=== PATIENT | male | born 1990 | race Asian ===

== ENCOUNTER 2024-07-02 13:53 | Emergency (ER) | payer MEDICAID, SELFPAY ==
[2024-07-02 13:55] VITALS: BMI 30.7
--- NOTE | 2024-07-02 14:13 | EKG_ITS ---
[facility] Test Date: 2024-07-02 Pat Name: CHUY TAVAREZ Department: Room: - Gender: Male [employer] Installation Technician: : 1990 Requested By: Cayetano Sorenson Order Number: [id number] Reading MD: Cayetano Sorenson Measurements Intervals [place] Rate: 96 P: 55 VT: 147 QRS: 43 QRSD: 87 T: 0 QT: 353 QTc: 448 Interpretive Statements SINUS RHYTHM MODERATE VOLTAGE CRITERIA FOR LVH, CONSIDER NORMAL VARIANT [MEETS CRITERIA IN ONE OF: R(aVL), S(V1), R(V5), R(V5/V6)+S(V1)] NONSPECIFIC T-WAVE ABNORMALITY Compared to ECG 01/05/2021 21:13:22 T-wave abnormality now present /store/S0/[id number].pdf
--- NOTE | 2024-07-02 14:13 | XR_ITS ---
EXAMINATION: XR chest 2V ORDERING PROVIDER: ADIEL Gonzalez HISTORY: Headache and hematuria. TECHNIQUE: PA and Lateral radiographs of the chest. COMPARISON: 01/05/2021, chest radiographs. FINDINGS: Lungs: Clear. Pleura: No pneumothorax or pleural effusion. Cardiomediastinal Silhouette: Normal. Soft Tissues/Bones: Normal. IMPRESSION: No acute pulmonary findings.
--- NOTE | 2024-07-02 14:13 | PD.EDRME ---
Rapid Medical Screening Exam RME Arrival date/time: 07/02/24 13:53 34-year-old male with no known medical history presents to the emergency room with a chief complaint of 8 out of 10 sternal chest pain, dizziness, lightheadedness x 3 days. Patient also states she has had an episode of hematuria. I have greeted and performed a focused initial assessment of this patient. A comprehensive ED assessment and evaluation of the patient, analysis of all test results, and completion of the medical decision making process will be conducted by additional ED providers. Chief Complaint: Chest Pain Time Seen by Provider: 07/02/24 14:03 Vital signs reviewed by provider: Yes
[2024-07-02 14:14] VITALS: BP 185/103; PULSE 114; RESP 18; TEMP 36.9; O2SAT 99; BMI 30.7
[2024-07-02 14:30] VITALS: BP 185/103; PULSE 114
[2024-07-02] MEDS: cloNIDine HCL 0.1 MG TABLET PO (14:30)
[2024-07-02 14:35] LABS: Basophils # (Auto) 0.1 Thou/mm3 (0.0-0.2); Basophils % (Auto) 1 % (0-2.5); Eosinophils # (Auto) 0.2 Thou/mm3 (0.0-0.5); Eosinophils % (Auto) 3 % (0-10); Hematocrit 43.8 % (41.0-53.0); Hemoglobin 13.7 g/dL (13.5-16.0); Immature Granulocytes % (Auto) 0 % (0-0); Immature Granulocytes Auto 0.02 Thou/mm3 (0.00-0.00); Lymphocytes # (Auto) 1.2 Thou/mm3 (1.0-4.8); Lymphocytes % (Auto) 15 % (10-50); Mean Corpuscular HGB Conc 31.3 g/dl (31.0-37.0); Mean Corpuscular Volume 67 fL (80-100); Monocytes # (Auto) 0.5 Thou/mm3 (0.0-0.8); Monocytes % (Auto) 7 % (0-12); Neutrophils # (Auto) 5.9 Thou/mm3 (1.8-7.7); Neutrophils % (Auto) 74 % (37-80); Nucleated Red Blood Cell % 0 /100 WBC (0); Platelet Count 298 Thou/mm3 (140-440); RDW Standard Deviation 36.1 fL (35.1-43.9); Red Blood Count 6.53 Miln/mm3 (4.50-5.90); White Blood Count 7.9 Thou/mm3 (3.8-10.6)
[2024-07-02 14:51] LABS: INR 1.1 (0.9-1.3); Partial Thromboplastin Time 29.5 Seconds (22.0-36.0); Prothrombin Time 11.5 Seconds (9.0-12.2)
[2024-07-02 14:53] LABS: B-Type Natriuretic Peptide < 20 pg/mL (0-100)
[2024-07-02 14:54] LABS: Path Review Blood Smear Sent to Pathologist
[2024-07-02 14:55] LABS: Alanine Aminotransferase 22 U/L (10-49); Albumin, Serum 4.8 gm/dL (3.5-5.0); Albumin/Globulin Ratio 1.7 (1.2-2.2); Alkaline Phosphatase 70 U/L (46-116); Anion Gap 8 (7-16); Aspartate Amino Transferase 22 U/L (0-34); BUN/Creatinine Ratio 5 Ratio (12-20); Bilirubin,Total 0.7 mg/dL (0.3-1.2); Blood Urea Nitrogen 5 mg/dL (9-23); Calcium 9.6 mg/dL (8.3-10.6); Calcium (Corrected) 9.6 mg/dL (8.5-10.1); Carbon Dioxide 29.1 mMol/L (20.0-31.0); Chloride 103 mMol/L (98-107); Estimated Creatinine Clearance 106.1 mL/min (>60); Globulin 2.9 gm/dL (2.3-3.5); Glucose 129 mg/dL (74-106); Magnesium 2.2 mg/dL (1.6-2.6); Osmolality,Calculated 278 (275-295); Potassium 3.2 mMol/L (3.4-5.1); Sodium 140 mMol/L (136-145); Total Protein 7.7 gm/dL (5.7-8.2); Troponin I < 0.020 ng/mL (0.0-0.045); eGFR > 60 See Note
[2024-07-02 16:32] LABS: Collection Type, Urine Clean Catch
[2024-07-02 16:37] LABS: Bilirubin,Urine Negative (Negative); Blood,Urine Negative (Negative); Clarity,Urine Clear (Clear/Hazy); Color,Urine Lt-Yellow (Lt Yel-Yel); Glucose, Urine Negative (Negative); Ketones,Urine Negative (Negative); Leukocyte Esterase,Urine Negative (Negative); Nitrite,Urine Negative (Negative); Protein,Urine Negative (Neg - Trace); RBC,Urine 1 /hpf (0-3); Specific Gravity,Urine 1.014 (1.001-1.035); Squamous Epithelial Cell,Urine < 1 /hpf (0-5); Urobilinogen,Urine Negative mg/dL (0.0-1.0); WBC,Urine 1 /hpf (0-5)
[2024-07-02 17:09] LABS: Amphetamine/Methamp Scrn,U Negative (Negative); Barbiturate Screen,Urine Negative (Negative); Benzodiazepines Screen,Urine Negative (Negative); Benzoylecgonine Screen, Ur Positive (Negative); Fentanyl Screen,Urine Negative (Negative); Opiate Screen,Urine Negative (Negative); THC Screen,Urine Positive (Negative)
[2024-07-02 17:47] VITALS: BP 145/92; PULSE 75; RESP 18; TEMP 36.6; O2SAT 98
--- NOTE | 2024-07-02 17:48 | EDNOTE_ITS ---
ED General RME/HPI General Chief complaint: Chest Pain Stated complaint: CP/MATTSON/BLOOD IN STOOL Time Seen by Provider: 07/02/24 14:03 Arrival date/time: 07/02/24 13:53 CC: Chest pain and headache bloody urination. HPI ongoing for the past 48 hours patient states he smokes marijuana but takes no street drugs does not drink alcohol for the past 2 years is awake alert oriented somewhat anxious. Currently only has a headache. RME / HPI RME / HPI narrative: 07/02/24 13:53 34-year-old male with no known medical history presents to the emergency room with a chief complaint of 8 out of 10 sternal chest pain, dizziness, lightheadedness x 3 days. Patient also states she has had an episode of hematuria. I have greeted and performed a focused initial assessment of this patient. A comprehensive ED assessment and evaluation of the patient, analysis of all test results, and completion of the medical decision making process will be conducted by additional ED providers. Related Data Home Medications ?Medication ?Instructions ?Recorded ?Confirmed INHALER ##0 12/20/15 Previous Rx's ?Medication ?Instructions ?Recorded Cyclobenzaprine * (FLEXERIL *) 10 mg PO TID #30 tabs 0 12/20/15 Hydrocodone/Acetaminophen * (NORCO 1 tab PO Q4H PRN pa in #20 tabs 12/21/15 5/325 *) Hydrocodone/Acetaminophen * (NORCO 1 tab PO Q6H PRN PA IN #12 tabs 10/04/16 5/325 *) ibuprofen 800 mg tablet 800 mg PO TID PRN pain #30 t abs 12/27/18 cephalexin 500 mg capsule (Keflex) 500 mg PO QID #28 c aps 12/30/18 cyclobenzaprine 15 mg 15 mg PO QDAY PRN muscle spa sm #3 12/30/18 capsule,extended release 24 hr caps doxycycline hyclate 100 mg capsule 100 mg PO BID #14 c aps 12/30/18 tramadol 37.5 mg-acetaminophen 325 1 tab PO TID PRN pa in #15 tabs 08/23/20 mg tablet (Ultracet) albuterol sulfate 90 mcg/actuation 2 puff inhalation Q ID PRN 01/06/21 aerosol inhaler shortness of breath or wheez ing #8.5 grams azithromycin 250 mg tablet See Rx Instructions PO .COM PLEX #6 01/06/21 tabs hydrocodone 5 mg-acetaminophen 325 1 tab PO BID PRN pa in #10 tabs 10/05/21 mg tablet ibuprofen 800 mg tablet 800 mg PO TID PRN pain #30 t abs 10/05/21 naproxen 500 mg tablet (Naprosyn) 500 mg PO BID PRN pa in #30 tabs 12/12/22 acetaminophen 500 mg tablet 1,000 mg (2 x 500 mg) PO Q 6H PRN 06/18/23 (Tylenol Extra Strength) pain #30 tabs methylprednisolone 4 mg tablets in 4 mg PO QAM #21 tab s 06/18/23 a dose pack (Medrol (Ambrocio)) meloxicam 7.5 mg tablet 7.5 mg PO QDAY #20 tabs 06/23 08/15 Allergies Allergy/AdvReac Type Severity Reaction Status Date / Time Egg Derived Allergy Severe Hives Verified 07/02/24 13:59 peanut Allergy Severe ANAPHYLAXIS Verified 07/02/24 13:59 walnut Allergy Severe ANAPHYLAXIS Verified 07/02/24 13:59 DAIRY PRODUCTS Allergy Severe Hives Uncoded 07/02/24 13:59 SEA FOOD Allergy Severe RASH Uncoded 07/02/24 13:59 Review of Systems Review of Systems Narrative Review of Systems: GEN: No fever, no chills, no weight loss EYES: No discharge, no visual changes, no pain HEENT: No ear pain, no congestion, no sore throat PULM: No shortness of breath, no cough, no congestion CV: No chest pain, no dyspnea on exertion, no palpitations GI: No nausea, no vomiting, no diarrhea, no pain, no constipation : No frequency, no urgency, no dysuria MUSC/SKEL: No joint pain, no back pain SKIN: No rash PSYCH: No hallucinations, no depression HEME/LYMPH: No easy bleeding or bruising tendencies NEURO: No weakness, + headache Past Medical History Past Medical History CARDIAC: Negative Cardiac Disorders or Congestive Heart Failure RESPIRATORY: Positive Asthma; Negative Chronic Obstructive Pulmonary Disease (COPD) GENITOURINARY: Negative Renal Disease MUSCULOSKELETAL: Positive Gout ENDOCRINE: Negative Diabetes Mellitus Type 1 or Diabetes Mellitus Type 2 HEMATOLOGIC: Negative Sickle Cell Disease Social History SMOKING STATUS: Current every day smoker SUBSTANCE USE: does not use ED Exam Narrative Physical exam: [General: Mildly anxious but not in any acute distress Head normocephalic HEENT: Eyes pupils are PERRLA EOMs are intact mouth pink moist membranes uvula is midline swallow symmetrical phonation is normal. Within acceptable limits Neck is supple nontender Chest equal chest rise nontender to palpation Respiratory: Clear to auscultation no wheezes crackles or rubs CV: Rate rhythm is regular no murmurs rubs or clicks Abdomen is flat, soft nontender no masses positive bowel sounds all 4 quadrants Back: No CVA tenderness no spinous process tenderness from cervical spine thoracic and lumbar spine Skin: Multiple open areas to his anterior chest and forearms suggestive of skin picking. Otherwise skin is intact no petechiae rash induration ulceration or crepitus Extremities: Moving all extremity against resistance cap refill less than 2 seconds neurosensory intact Neuro: Awake alert oriented x3 Glascow coma 15 no focal deficits] Course Quality Measures none Orders Category Date Time Status EKG (ED ONLY) *Do not use* NOW Care 07/02/24 14:13 Completed EKG (ED Only) Stat Exams 07/02/24 14:13 Draft XR chest 2V Stat Exams 07/02/24 14:13 Completed B-Type Natriuretic Peptide Stat Lab 07/02/24 14:28 Completed CBC Stat Lab 07/02/24 14:28 Completed Comprehensive Metabolic Panel Stat Lab 07/02/24 14:28 Completed Drug Screen,Urine Stat Lab 07/02/24 16:22 Completed Magnesium Stat Lab 07/02/24 14:28 Completed Partial Thromboplastin Time Stat Lab 07/02/24 14:28 Completed Path Review Blood Smear Stat Lab 07/02/24 14:28 Completed Prothrombin Time with INR Stat Lab 07/02/24 14:28 Completed Troponin I Stat Lab 07/02/24 14:28 Completed Urinalysis Stat Lab 07/02/24 16:22 Completed Acetaminophen Tab [Tylenol Tab] Med 07/02/24 17:57 Discontinued 650 mg PO X1 ONE cloNIDine HCL [Catapres] Med 07/02/24 14:14 Discontinued 0.1 mg PO X1 ONE Vital Signs Vital signs: Vital Signs Temperature 98.5 F 07/02/24 14:14 Pulse Rate 114 H 07/02/24 14:14 Respiratory Rate 18 07/02/24 14:14 Blood Pressure 185/103 H 07/02/24 14:14 Pulse Oximetry (%) 99 07/02/24 14:14 Oxygen Delivery Method Room Air 07/02/24 14:[address] [facility] Patient data External records reviewed:: [facility] previous records Clinical information provided by:: patient Social determinants that could affect healthcare access:: none Patient has the following chronic illnesses:: None How is presenting disease/condition affected by chronic disease/condition?: u neffected by Evaluation data The following diagnostics were reviewed and interpreted by me:: lab results, radiology exam(s) and EKG tracing(s) Lab and/or radiology exams considered but not ordered:: EKG performed at 1419 shows ventricular rate of 9 6 SD interval 147 QRS of 8 7 QTc of 407 is normal sinus rhythm. Nonspecific T wave abnormalities CBC shows no acute leukocytosis anemia thrombocytopenia CMP shows no acute electrolyte imbalances other than potassium of 3.2. Renal impairment transaminitis or T. bili elevation other than Coags within acceptable limits Troponin is negative BNP is negative Urine is negative UDS is positive for cocaine and marijuana Interpretation Summary: No acute finding requires emergent or immediate intervention we will give the patient Tylenol for headache and discharged home. Medications Medications considered but not ordered:: None Medication administrations:: Medication Administration History Discontinued Medications Acetaminophen (Acetaminophen 325 Mg Tablet) 650 mg PO X1 ONE Stop: 07/02/24 17:58 Last Admin: 07/02/24 18:11 Dose: 650 mg Documented By: TM Clonidine (Clonidine Hcl 0.1 Mg Tablet) 0.1 mg PO X1 ONE Stop: 07/02/24 14:15 Last Admin: 07/02/24 14:30 Dose: 0.1 mg Documented By: ANA M None Consultations Consultation(s) initiated? (list below): No Diagnosis Differential Diagnosis ED Complaint MDM: ACS NC pneumonia Most likely diagnosis given after review of the tests above:: Chest pain headache cocaine abuse Admission Indicated Admission indicated?: not indicated Explain why admission is indicated or not indicated:: Stable for discharge Admission Request Was there a request for admission?: No Disposition Plan Disposition Plan: Discharge Discharge Attestation Discharge Attestation: The patient and all family members were given an opportunity to ask questions and understood the discharge instructions. Discharge instructions specifically effects, indications for sooner follow up or return to the emergency department, and the expected course of current diagnosis. Patient condition: Stable Medical Decision Making Differential Diagnosis Differential Diagnosis: ACS NC pneumonia Lab Data 07/02/24 14:28 07/02/24 14:28 Labs: Lab Results 07/02/24 07/02/24 Range/Units 14:28 16:22 WBC 7.9 (3.8-10.6) Thou/mm3 RBC 6.53 H (4.50-5.90) Miln/mm3 Hgb 13.7 (13.5-16.0) g/dL Hct 43.8 (41.0-53.0) % MCV 67 L (80-100) fL MCH 21.0 L (25.0-35.0) pg MCHC 31.3 (31.0-37.0) g/dl RDW Std Deviation 36.1 (35.1-43.9) fL Plt Count 298 (140-440) Thou/mm3 Neut % (Auto) 74 (37-80) % Lymph % (Auto) 15 (10-50) % Martin % (Auto) 7 (0-12) % Eos % (Auto) 3 (0-10) % Baso % (Auto) 1 (0-2.5) % Neut # (Auto) 5.9 (1.8-7.7) Thou/mm3 Lymph # (Auto) 1.2 (1.0-4.8) Thou/mm3 Martin # (Auto) 0.5 (0.0-0.8) Thou/mm3 Eos # (Auto) 0.2 (0.0-0.5) Thou/mm3 Baso # (Auto) 0.1 (0.0-0.2) Thou/mm3 Immature Gran # (Auto) 0.02 H (0.00-0.00) Thou/mm3 Absolute Nucleated RBC 0.00 (0.00-0.00) Thou/mm3 Immature Gran % 0 (0-0) % Nucleated RBC % 0 (0) /100 WBC Smear Path Review Sent to Pathologist PT 11.5 (9.0-12.2) Seconds INR 1.1 (0.9-1.3) APTT 29.5 (22.0-36.0) Seconds Sodium 140 (136-145) mMol/L Potassium 3.2 L (3.4-5.1) mMol/L Chloride 103 (98-107) mMol/L Carbon Dioxide 29.1 (20.0-31.0) mMol/L Anion Gap 8 (7-16) BUN 5 L (9-23) mg/dL Creatinine 1.0 (0.6-1.3) mg/dL Estim Creat Clear Calc 106.1 (>60) mL/min eGFR > 60 (60 - ) See Note BUN/Creatinine Ratio 5 L (12-20) Ratio Glucose 129 H (74-106) mg/dL Calculated Osmolality 278 (275-295) Calcium 9.6 (8.3-10.6) mg/dL Corrected Calcium 9.6 (8.5-10.1) mg/dL Magnesium 2.2 (1.6-2.6) mg/dL Total Bilirubin 0.7 (0.3-1.2) mg/dL AST 22 (0-34) U/L ALT 22 (10-49) U/L Alkaline Phosphatase 70 (46-116) U/L Troponin I < 0.020 (0.0-0.045) ng/mL B-Natriuretic Peptide < 20 (0-100) pg/mL Total Protein 7.7 (5.7-8.2) gm/dL Albumin 4.8 (3.5-5.0) gm/dL Globulin 2.9 (2.3-3.5) gm/dL Albumin/Globulin Ratio 1.7 (1.2-2.2) Ur Collection Type Clean Catch Urine Color Lt-Yellow (Lt Yel-Yel) Urine Clarity Clear (Clear/Hazy) Urine pH 7.0 (5.0-7.0) Ur Specific [place] 1.014 (1.001-1.035) Urine Protein Negative (Neg - Trace) Urine Glucose (UA) Negative (Negative) Urine Ketones Negative (Negative) Urine Blood Negative (Negative) Urine Nitrite Negative (Negative) Urine Bilirubin Negative (Negative) Urine Urobilinogen (Auto) Negative (0.0-1.0) mg/dL Ur Leukocyte Esterase Negative (Negative) Urine RBC 1 (0-3) /hpf Urine WBC 1 (0-5) /hpf Ur Squamous Epith Cells < 1 (0-5) /hpf Urine Bacteria None (None) Urine Opiates Screen Negative (Negative) Urine Fentanyl Screen Negative (Negative) Ur Barbiturates Screen Negative (Negative) U Amphetamin/Meth Scrn Negative (Negative) U Benzodiazepines Scrn Negative (Negative) U Cocaine Metab Screen Positive A (Negative) U Marijuana (THC) Screen Positive A (Negative) Discharge Plan Plan Patient Disposition: HOME (Self Care) Patient condition on transfer: Stable Prescriptions/Referrals Prescriptions/Med Rec: No Action INHALER Qty: 0 Cyclobenzaprine * (FLEXERIL *) 10 MG tablet 10 mg PO TID Qty: 30 0RF Hydrocodone/Acetaminophen * (NORCO 5/325 *) 1 TAB tablet 1 tab PO Q4H PRN (Reason: pain) Qty: 20 0RF Rx Instructions: 1 - 2 tabs every 6 hours as needed for pain Hydrocodone/Acetaminophen * (NORCO 5/325 *) 1 TAB tablet 1 tab PO Q6H PRN (Reason: PAIN) Qty: 12 0RF tramadol-acetaminophen [Ultracet] 37.5-325 mg tablet 1 tab PO TID PRN (Reason: pain) Qty: 15 0RF ibuprofen 800 mg tablet 800 mg PO TID PRN (Reason: pain) Qty: 30 0RF hydrocodone-acetaminophen 5-325 mg tablet 1 tab PO BID MDD 10 PRN (Reason: pain) Qty: 10 0RF ibuprofen 800 mg tablet 800 mg PO TID PRN (Reason: pain) Qty: 30 0RF cephalexin [Keflex] 500 mg capsule 500 mg PO QID Qty: 28 0RF doxycycline hyclate 100 mg capsule 100 mg PO BID Qty: 14 0RF cyclobenzaprine 15 mg capsule,extended release 24hr 15 mg PO QDAY PRN (Reason: muscle spasm) Qty: 3 0RF azithromycin 250 mg tablet See Rx Instructions .ROUTE .COMPLEX Qty: 6 0RF Rx Instructions: take 500 mg today (day 1), then 250 mg for 4 days (days 2-5) albuterol sulfate 90 mcg/actuation HFA aerosol inhaler 2 puff inhalation QID PRN (Reason: shortness of breath or wheezing) Qty: 8.5 0RF naproxen [Naprosyn] 500 mg tablet 500 mg PO BID PRN (Reason: pain) Qty: 30 0RF methylprednisolone [Medrol (Ambrocio)] 4 mg tablets,dose pack 4 mg PO QAM Qty: 21 0RF acetaminophen [Tylenol Extra Strength] 500 mg tablet 1,000 mg PO Q6H PRN (Reason: pain) Qty: 30 0RF meloxicam 7.5 mg tablet 7.5 mg PO QDAY Qty: 20 0RF Referrals: Niles Correa MD [Primary Care Provider] - In 1 week Problem List Clinical Impression: Chest pain, Headache, Cocaine abuse Patient/Caregiver Discharge Instructions Education Materials: Self-Care for Headaches, Treating Drug Abuse and Addiction, ED Chest Pain, Uncertain Cause Print Language: Frisian Stand Alone Forms: Nay Award Info., Work/School Release, Patient Portal Info Letter PA/COMPARATOR OPERATOR Supervising Physician PA/COMPARATOR OPERATOR Supervising Physician: Dillon Oliva ENP
[2024-07-02] MEDS: ACETAMINOPHEN 325 MG TABLET 650 MG PO (18:11)
[2024-07-02 18:18] VITALS: BP 136/82; PULSE 84; RESP 16; TEMP 36.6; O2SAT 98
== END 2024-07-02 18:14 | disposition home or self-care (01) ==
PROVIDERS: Nurse Practitioner Family; Emergency Provider Emergency Medicine; PCP Family Medicine
DX: R07.9 Chest pain, unspecified (principal); R51.9 Headache, unspecified; F14.10 Cocaine abuse, uncomplicated
CPT/HCPCS: 36415; 71046; 80053; 80307; 81001; 83735; 83880; 84484; 85025; 85610; 85730; 93005; 99283; A9270

== ENCOUNTER 2024-09-15 20:57 | Emergency (ER) | payer MEDICAID, SELFPAY ==
[2024-09-15 20:58] VITALS: BMI 29.0
[2024-09-15 21:21] VITALS: BP 127/90; PULSE 84; RESP 20; TEMP 37.1; O2SAT 98
[2024-09-15] MEDS: DEXAMETHASONE SOD PHOS INJ 10 MG/ML VIAL IM (22:00)
[2024-09-15] MEDS: KETOROLAC INJ 60 MG/2 ML VIAL 30 MG IM (22:00)
[2024-09-15] MEDS: HYDROcodone/APAP 5/325 TABLET 1 TAB PO (22:00)
[2024-09-15 22:59] LABS: Uric Acid 7.4 mg/dL (3.7-9.2)
--- NOTE | 2024-09-15 23:20 | EDNOTE_ITS ---
Lower Extremity Injury RME/HPI General Chief Complaint: Ankle/Foot Injury Stated Complaint: LEFT FOOT PAIN Time Seen by Provider: 09/15/24 21:13 Source: patient Arrival date/time: 09/15/24 20:57 This is a case of 34-year-old male with history of gout came in in the emergency room due to left foot and ankle pain patient states that his gout flareup for 1 week worsening of the symptoms now with mild swelling thus patient decided to start consult here in the emergency room patient denies any injury or trauma Limitations: no limitations Related Data Home Medications ?Medication ?Instructions ?Recorded ?Confirmed INHALER ##0 12/20/15 Previous Rx's ?Medication ?Instructions ?Recorded Cyclobenzaprine * (FLEXERIL *) 10 mg PO TID #30 tabs 0 12/20/15 Hydrocodone/Acetaminophen * (NORCO 1 tab PO Q4H PRN pa in #20 tabs 12/21/15 5/325 *) Hydrocodone/Acetaminophen * (NORCO 1 tab PO Q6H PRN PA IN #12 tabs 10/04/16 5/325 *) ibuprofen 800 mg tablet 800 mg PO TID PRN pain #30 t abs 12/27/18 cephalexin 500 mg capsule (Keflex) 500 mg PO QID #28 c aps 12/30/18 cyclobenzaprine 15 mg 15 mg PO QDAY PRN muscle spa sm #3 12/30/18 capsule,extended release 24 hr caps doxycycline hyclate 100 mg capsule 100 mg PO BID #14 c aps 12/30/18 tramadol 37.5 mg-acetaminophen 325 1 tab PO TID PRN pa in #15 tabs 08/23/20 mg tablet (Ultracet) albuterol sulfate 90 mcg/actuation 2 puff inhalation Q ID PRN 01/06/21 aerosol inhaler shortness of breath or wheez ing #8.5 grams azithromycin 250 mg tablet See Rx Instructions PO .COM PLEX #6 01/06/21 tabs hydrocodone 5 mg-acetaminophen 325 1 tab PO BID PRN pa in #10 tabs 10/05/21 mg tablet ibuprofen 800 mg tablet 800 mg PO TID PRN pain #30 t abs 10/05/21 naproxen 500 mg tablet (Naprosyn) 500 mg PO BID PRN pa in #30 tabs 12/12/22 acetaminophen 500 mg tablet 1,000 mg (2 x 500 mg) PO Q 6H PRN 06/18/23 (Tylenol Extra Strength) pain #30 tabs methylprednisolone 4 mg tablets in 4 mg PO QAM #21 tab s 06/18/23 a dose pack (Medrol (Ambrocio)) meloxicam 7.5 mg tablet 7.5 mg PO QDAY #20 tabs 06/23 08/15 colchicine 0.6 mg capsule 0.6 mg PO BID PRN gout pin # 10 caps 09/15/24 hydrocodone 5 mg-acetaminophen 325 1 tab PO Q6H PRN pa in #15 tabs 09/15/24 mg tablet Allergies Allergy/AdvReac Type Severity Reaction Status Date / Time Egg Derived Allergy Severe Hives Verified 07/02/24 13:59 peanut Allergy Severe ANAPHYLAXIS Verified 07/02/24 13:59 walnut Allergy Severe ANAPHYLAXIS Verified 07/02/24 13:59 DAIRY PRODUCTS Allergy Severe Hives Uncoded 07/02/24 13:59 SEA FOOD Allergy Severe RASH Uncoded 07/02/24 13:59 Review of Systems Review of Systems Systems Reviewed: All systems reviewed, normal except as documented Constitutional Constitutional: Reports system reviewed and no additional complaints, except as documented, Reports as per HPI, Denies chills and Denies fever(s) ENT Ears, Nose, Mouth, and Throat: Denies neck pain Cardiovascular Cardiovascular: Reports system reviewed and no additional complaints, except as documented, Reports as per HPI, Denies chest pain, Denies chest pain at rest and Denies dyspnea Respiratory Respiratory: Reports system reviewed and no additional complaints, except as documented, Denies chest congestion, Denies cough and Denies dyspnea Gastrointestinal Gastrointestinal: Reports system reviewed and no additional complaints, except as documented and Denies abdominal pain Musculoskeletal Musculoskeletal: Reports abnormal gait, Reports arthralgias, Denies atrophy, Denies back pain, Denies deformity, Reports joint swelling, Denies limited range of motion, Denies loss of height, Denies muscle cramps, Denies muscle weakness, Denies myalgias, Denies neck pain and Denies numbness Neurologic Neurologic: Reports system reviewed and no additional complaints, except as documented, Reports as per HPI, Reports abnormal gait and Denies numbness Past Medical History Past Medical History CARDIAC: Negative Cardiac Disorders or Congestive Heart Failure RESPIRATORY: Positive Asthma; Negative Chronic Obstructive Pulmonary Disease (COPD) GENITOURINARY: Negative Renal Disease MUSCULOSKELETAL: Positive Gout ENDOCRINE: Negative Diabetes Mellitus Type 1 or Diabetes Mellitus Type 2 HEMATOLOGIC: Negative Sickle Cell Disease Social History SMOKING STATUS: Never smoker SUBSTANCE USE: does not use ED Exam General Limitations: Present no limitations General appearance: Present alert and in no apparent distress; Absent appears intoxicated, anxious, lethargic, obtunded or in distress Head Head exam: Present atraumatic, normocephalic and normal inspection Eye Eye exam: Present normal appearance, PERRL and EOMI ENT ENT exam: Present normal exam, normal oropharynx and mucous membranes moist Neck Neck exam: Present normal inspection, full ROM and trachea midline; Absent tenderness, meningismus or lymphadenopathy Chest Chest inspection: Present normal inspection and symmetric chest wall rise Respiratory Respiratory exam: Present normal lung sounds bilaterally; Absent respiratory d istress, wheezes, stridor, accessory muscle use or prolonged expiratory phase Cardiovascular Cardiovascular exam: Present regular rate, normal rhythm and normal heart sounds; Absent systolic murmur or diastolic murmur Abdominal Exam Abdominal exam: Present soft and normal bowel sounds; Absent distention, tenderness, guarding, rebound or rigidity Extremities Exam Extremities exam: Present normal inspection, full ROM, normal capillary refill and other (Noted mild to moderate tenderness on the left ankle and left foot with mild swelling warmth to touch but no redness no abscess no cellulitis no deformity no crepitation no calf tenderness. Patient is not able to stand up on the left steps when he needs one due to his pain ROM limited due to pain ); Absent tenderness, pedal edema, joint swelling or calf tenderness Back Exam Back exam: Present normal inspection and full ROM Neurological Exam Neurological exam: Present alert, oriented X3, CN II-XII intact, reflexes normal and other (Sensory intact left: Capillary refill less than few seconds); Absent motor sensory deficit Psychiatric Psychiatric exam: Present normal affect and normal mood Skin Skin exam: Present warm, dry, intact and normal color Course Quality Measures none Orders Category Date Time Status Uric Acid Stat Lab 09/15/24 22:08 Completed Dexamethasone Inj [Decadron Inj] Med 09/15/24 21:42 Discontinued 10 mg IM X1 ONE HYDROcodone*/APAP 5/325 [Stephens 5/325] Med 09/15/24 21:42 Discontinued 1 tab PO X1 ONE Ketorolac Inj [Toradol Inj] Med 09/15/24 21:42 Discontinued 30 mg IM X1 ONE Vital Signs Vital signs: Vital Signs Temperature 98.8 F 09/15/24 21:21 Pulse Rate 84 09/15/24 21:21 Respiratory Rate 20 09/15/24 21:21 Blood Pressure 127/90 H 09/15/24 21:21 Pulse Oximetry (%) 98 09/15/24 21:21 Oxygen Delivery Method Room Air 09/15/24 21:21 Extremity Injury, Lower MDM Narrative MDM Narrative:: This is a case of 34-year-old male with history of gout came in in the emergency room due to left foot and ankle pain patient states that his gout flareup for 1 week worsening of the symptoms now with mild swelling thus patient decided to start consult here in the emergency room patient denies any injury or trauma Physical examination patient is awake alert oriented not in distress nontoxic looking weakness stable not tachycardic not tachypneic not febrile Noted mild to moderate tenderness on the left ankle and left foot with mild swelling warmth to touch but no redness no abscess no cellulitis no deformity no crepitation no calf tenderness. Patient is not able to stand up on the left steps when he needs one due to his pain ROM limited due to pain neurovascular EXTR were normal capillary refill less than 2 seconds no calf tenderness negative Noble sign Uric acid normal patient was given dexamethasone to decrease inflammation Toradol and Stephens for pain Patient verbalized that the pain improved patient will be discharged as gouty arthritis patient was advised to follow-up with PCP to be referred to type bar and segment assembler for further evaluation and treatment of the arthritis Patient was prescribed with colchicine for pain and in severe pain so he was prescribed with Stephens He was advised for any worsening symptoms or any emergent concern please return the emergency room immediately or call 911 Patient was discharged with comfortable condition . Patient verbalized no further complains explained diagnosis and answered patient question. Patient is comfortable with the proposed management plan including the need to follow up with his/her primary care physician and any specialist if applicable Discussed patient for any urgent condition or worsening sx, He/She needed to go to emergency room immediately or call 911. Patient acknowledge the responsibility to follow up as instructed and to monitor her/his symptoms. For any persistence of the symptoms for more than 3-5 days return precaution advised. Discussed the result of the test and was given printed discharge instruction Patient data External records reviewed:: [facility] previous records Clinical information provided by:: patient Social determinants that could affect healthcare access:: none (None) Patient has the following chronic illnesses:: None How is presenting disease/condition affected by chronic disease/condition?: no chronic disease Evaluation data The following diagnostics were reviewed and interpreted by me:: lab results Lab and/or radiology exams considered but not ordered:: Reviewed Interpretation Summary: Reviewed Medications / Prescriptions Medications or Prescriptions considered but not ordered:: Given Medication administrations:: Medication Administration History Discontinued Medications Hydrocodone Bitart/Acetaminophen (Hydrocodone/Apap 5/325 Tablet) 1 tab PO X1 ONE Stop: 09/15/24 21:43 Last Admin: 09/15/24 22:00 Dose: 1 tab Documented By: NARAYAN Dexamethasone Sodium Phosphate (Dexamethasone Sod Phos Inj 10 Mg/Ml Vial) 10 mg IM X1 ONE Stop: 09/15/24 21:43 Last Admin: 09/15/24 22:00 Dose: 10 mg Documented By: NARAYAN Ketorolac Tromethamine (Ketorolac Inj 60 Mg/2 Ml Vial) 30 mg IM X1 ONE Stop: 09/15/24 21:43 Last Admin: 09/15/24 22:00 Dose: 30 mg Documented By: NARAYAN Given Consultations Consultation(s) initiated? (list below): No Diagnosis Extremity Injury, Lower Differential Diagnosis: ankle sprain and strain Most likely diagnosis given after review of the tests above:: gouty arthritis Admission Indicated Admission indicated?: not indicated Explain why admission is indicated or not indicated:: Not indicated Admission Request Was there a request for admission?: No Admission Attestation Admission request attestation: Not indicated Disposition Plan Disposition Plan: Discharge Discharge Attestation Discharge Attestation: The patient and all family members were given an opportunity to ask questions and understood the discharge instructions. Discharge instructions specifically effects, indications for sooner follow up or return to the emergency department, and the expected course of current diagnosis. Patient condition: Stable Discharge Plan Plan Patient Disposition: HOME (Self Care) Patient condition on transfer: Stable Prescriptions/Referrals Prescriptions/Med Rec: New colchicine 0.6 mg capsule 0.6 mg PO BID PRN (Reason: gout pin) Qty: 10 0RF hydrocodone-acetaminophen 5-325 mg tablet 1 tab PO Q6H MDD max4 tab per day PRN (Reason: pain) Qty: 15 0RF No Action INHALER Qty: 0 Cyclobenzaprine * (FLEXERIL *) 10 MG tablet 10 mg PO TID Qty: 30 0RF Hydrocodone/Acetaminophen * (NORCO 5/325 *) 1 TAB tablet 1 tab PO Q4H PRN (Reason: pain) Qty: 20 0RF Rx Instructions: 1 - 2 tabs every 6 hours as needed for pain Hydrocodone/Acetaminophen * (NORCO 5/325 *) 1 TAB tablet 1 tab PO Q6H PRN (Reason: PAIN) Qty: 12 0RF tramadol-acetaminophen [Ultracet] 37.5-325 mg tablet 1 tab PO TID PRN (Reason: pain) Qty: 15 0RF ibuprofen 800 mg tablet 800 mg PO TID PRN (Reason: pain) Qty: 30 0RF hydrocodone-acetaminophen 5-325 mg tablet 1 tab PO BID MDD 10 PRN (Reason: pain) Qty: 10 0RF ibuprofen 800 mg tablet 800 mg PO TID PRN (Reason: pain) Qty: 30 0RF cephalexin [Keflex] 500 mg capsule 500 mg PO QID Qty: 28 0RF doxycycline hyclate 100 mg capsule 100 mg PO BID Qty: 14 0RF cyclobenzaprine 15 mg capsule,extended release 24hr 15 mg PO QDAY PRN (Reason: muscle spasm) Qty: 3 0RF azithromycin 250 mg tablet See Rx Instructions .ROUTE .COMPLEX Qty: 6 0RF Rx Instructions: take 500 mg today (day 1), then 250 mg for 4 days (days 2-5) albuterol sulfate 90 mcg/actuation HFA aerosol inhaler 2 puff inhalation QID PRN (Reason: shortness of breath or wheezing) Qty: 8.5 0RF naproxen [Naprosyn] 500 mg tablet 500 mg PO BID PRN (Reason: pain) Qty: 30 0RF methylprednisolone [Medrol (Ambrocio)] 4 mg tablets,dose pack 4 mg PO QAM Qty: 21 0RF acetaminophen [Tylenol Extra Strength] 500 mg tablet 1,000 mg PO Q6H PRN (Reason: pain) Qty: 30 0RF meloxicam 7.5 mg tablet 7.5 mg PO QDAY Qty: 20 0RF Referrals: Niles Correa MD [Primary Care Provider] - In 1 week Problem List Clinical Impression: Acute ankle pain, Gouty arthritis Patient/Caregiver Discharge Instructions Education Materials: ED Gout, ED Gout Diet Additional Instructions: Follow-up with your primary care physician in 2 days for reevaluation and to be referred to type bar and segment assembler for further evaluation and treatment of gouty arthritis ice pack and warm compress as needed for pain elevate to decrease swelling for any worsening symptoms or any emergent concern return to the emergency room immediately or call 911 blood pressure reevaluated is advised Print Language: Persian Stand Alone Forms: Nay Award Info., Patient Portal Info Letter PA/ADIEL Supervising Physician PA/ADIEL Supervising Physician: dr murphy
== END 2024-09-15 23:55 | disposition home or self-care (01) ==
PROVIDERS: Nurse Practitioner Family; Emergency Provider Emergency Medicine; PCP Family Medicine
DX: M10.9 Gout, unspecified (principal)
CPT/HCPCS: 36415; 84550; 96372; 99283; J1100; J1885; A9270

== ENCOUNTER 2024-12-13 01:49 | Emergency (ER) | payer MEDICAID, SELFPAY ==
[2024-12-13 01:50] VITALS: BMI 29.8
--- NOTE | 2024-12-13 02:47 | XR_ITS ---
Examination: PA chest single view TECHNIQUE: Upright PA chest single view Date and time: December 13, 2024 0250 hours, comparison July 02, 2024 INDICATIONS: SOB chest pain today. FINDINGS: Normal heart size. Lungs are clear. The osseous structures are intact. IMPRESSION: No active disease.
--- NOTE | 2024-12-13 02:47 | XR_ITS ---
Examination: CT abdomen with intravenous contrast CT pelvis with intravenous contrast 2-D coronal reconstructions 2-D sagittal reconstructions Date and time of exam:December 13, 2024, 0439 hours, comparison February 18, 2017. INDICATIONS: Left upper abdominal pain today, history kidney stones. CTDI: vol (mGy) 6.87. DLP: (mGycm) 413. Technique: Multiple axial sections of the abdomen and pelvis have been obtained. 64 slice high-resolution scanner used. 3 mm axial sections have been obtained, post intravenous injection of 60 cc Isovue 370. 2-D sagittal, coronal reconstructions obtained. Low dose protocols were performed. One or more of the following dose reduction techniques were used; automated exposure control, adjustment of the mA and/or KV according to patient size, use of iterative reconstruction technique. Findings: No focal liver or splenic lesion. Contracted gallbladder. No pancreatic or adrenal mass. Bilateral renal cysts, the largest in the left kidney anteriorly, 4 cm Aorta normal size No bowel obstruction Normal appendix No diverticulitis Normal seminal vesicles Prostate is not enlarged No bladder mass Tiny fat-containing left inguinal hernia Moderate disc narrowing L5-S1 IMPRESSION: No acute process in the abdomen or pelvis
--- NOTE | 2024-12-13 02:48 | XR_ITS ---
Examination: CTA chest with intravenous contrast 2-D reconstructions 3-D reconstructions, vascular Date and time of exam: December 13, 2024, 0439 hours. INDICATIONS: Onset severe left-sided chest pain today CTDI: vol (mGy) 9.26. DLP: (mGycm) 487. Technique: Multiple axial sections of the thorax have been obtained. 3 mm slice thickness, from below the hemidiaphragms to above the apices of the lungs. Mediastinal and lung density settings have been obtained. 2-D sagittal and coronal reconstructions. 3-D angiographic renderings, 3-D volume renderings, 3D post processing, vascular maximum intensity projections obtained. Contrast administered is 100 cc Isovue 370 intravenous.. Low dose protocols were performed. One or more of the following dose reduction techniques were used; automated exposure control, adjustment of the mA and/or KV according to patient size, use of iterative reconstruction technique. Findings: No thoracic aortic aneurysm dilatation. No pulmonary artery filling defects. No paratracheal tracheobronchial or bronchopulmonary adenopathy. No pneumonia of pulmonary edema or pleural disease There is mild calcification left anterior descending coronary artery and left circumflex coronary artery No pneumonia or pulmonary edema, no pleural disease No visualized liver or splenic lesion No gallstones No pancreatic or adrenal mass Anterior left renal mass 4.7 cm with small areas of calcification in the wall of this mass, please see the CT abdomen report IMPRESSION: Negative for pulmonary artery emboli Mild calcification left anterior descending and left circumflex coronary arteries No pneumonia or pulmonary edema or pleural disease
[2024-12-13 02:50] VITALS: BP 164/105; BP 167/120; PULSE 61; RESP 18; TEMP 36.5; O2SAT 100
--- NOTE | 2024-12-13 02:51 | EDNOTE_ITS ---
ED Abdominal Pain RME/HPI General Chief Complaint: Abdominal Pain Stated complaint: LUQ PAIN Time seen by provider: 12/13/24 02:56 Arrival date/time: 12/13/24 01:49 Related Data Home Medications ?Medication ?Instructions ?Recorded ?Confirmed INHALER ##0 12/20/15 Previous Rx's ?Medication ?Instructions ?Recorded Cyclobenzaprine * (FLEXERIL *) 10 mg PO TID #30 tabs 0 12/20/15 Hydrocodone/Acetaminophen * (NORCO 1 tab PO Q4H PRN pa in #20 tabs 12/21/15 5/325 *) Hydrocodone/Acetaminophen * (NORCO 1 tab PO Q6H PRN PA IN #12 tabs 10/04/16 5/325 *) ibuprofen 800 mg tablet 800 mg PO TID PRN pain #30 t abs 12/27/18 cephalexin 500 mg capsule (Keflex) 500 mg PO QID #28 c aps 12/30/18 cyclobenzaprine 15 mg 15 mg PO QDAY PRN muscle spa sm #3 12/30/18 capsule,extended release 24 hr caps doxycycline hyclate 100 mg capsule 100 mg PO BID #14 c aps 12/30/18 tramadol 37.5 mg-acetaminophen 325 1 tab PO TID PRN pa in #15 tabs 08/23/20 mg tablet (Ultracet) albuterol sulfate 90 mcg/actuation 2 puff inhalation Q ID PRN 01/06/21 aerosol inhaler shortness of breath or wheez ing #8.5 grams azithromycin 250 mg tablet See Rx Instructions PO .COM PLEX #6 01/06/21 tabs hydrocodone 5 mg-acetaminophen 325 1 tab PO BID PRN pa in #10 tabs 10/05/21 mg tablet ibuprofen 800 mg tablet 800 mg PO TID PRN pain #30 t abs 10/05/21 naproxen 500 mg tablet (Naprosyn) 500 mg PO BID PRN pa in #30 tabs 12/12/22 acetaminophen 500 mg tablet 1,000 mg (2 x 500 mg) PO Q 6H PRN 06/18/23 (Tylenol Extra Strength) pain #30 tabs methylprednisolone 4 mg tablets in 4 mg PO QAM #21 tab s 06/18/23 a dose pack (Medrol (Ambrocio)) meloxicam 7.5 mg tablet 7.5 mg PO QDAY #20 tabs /08/15 colchicine 0.6 mg capsule 0.6 mg PO BID PRN gout pin # 10 caps 09/15/24 hydrocodone 5 mg-acetaminophen 325 1 tab PO Q6H PRN pa in #15 tabs 09/15/24 mg tablet Allergies Allergy/AdvReac Type Severity Reaction Status Date / Time Egg Derived Allergy Severe Hives Verified 12/13/24 01:53 peanut Allergy Severe ANAPHYLAXIS Verified 12/13/24 01:53 walnut Allergy Severe ANAPHYLAXIS Verified 12/13/24 01:53 DAIRY PRODUCTS Allergy Severe Hives Uncoded 12/13/24 01:53 SEA FOOD Allergy Severe RASH Uncoded 12/13/24 01:53 Course Quality Measures none Orders Category Date Time Status CT Screening NOW Care 12/13/24 02:47 Active Saline [Insert IV] NOW Care 12/13/24 02:46 Active Straight [In and Out Catheter] X1 Care 12/13/24 02:[address] abdomen pelvis w con Stat Exams 12/13/24 02:[address] angio chest Stat Exams 12/13/24 02:48 Ordered XR chest 1V portable Stat Exams 12/13/24 02:47 Taken Alcohol, Blood Medical Stat Lab 12/13/24 03:29 Completed Amylase Stat Lab 12/13/24 03:29 Completed BNP [B-Type Natriuretic Peptide] Stat Lab 12/13/24 03:29 Completed Bilirubin,Direct Stat Lab 12/13/24 03:29 Completed CBC Stat Lab 12/13/24 03:29 Completed CMP [Comprehensive Metabolic Panel] Stat Lab 12/13/24 03:29 Completed D-Dimer Stat Lab 12/13/24 03:29 Completed Drug Screen,Urine Stat Lab 12/13/24 03:40 Completed Lipase Stat Lab 12/13/24 03:29 Completed Magnesium Stat Lab 12/13/24 03:29 Completed Troponin I Stat Lab 12/13/24 03:29 Completed UA, C/S IF [Urinalysis, C/S if Indicated] Stat Lab 12/13/24 03:40 Completed Ketorolac Inj [Toradol Inj] Med 12/13/24 02:46 Discontinued 30 mg IVP X1 ONE Morphine Inj Med 12/13/24 02:46 Discontinued 6 mg IVP X1 ONE Ondansetron Inj [Zofran Inj] Med 12/13/24 02:46 Discontinued 4 mg IVP X1 ONE Sodium Chloride Rt Edith 0.9% [NS Rt Edith 0.9%] Med 12/13/24 02:46 Active 3 ml INH PRN PRN Vital Signs Vital signs: Vital Signs Temperature 97.7 F 12/13/24 02:50 Pulse Rate 61 12/13/24 02:50 Respiratory Rate 18 12/13/24 02:50 Blood Pressure 164/105 H 12/13/24 02:50 Pulse Oximetry (%) 100 12/13/24 02:50 Oxygen Delivery Method Room Air 12/13/24 02:50 Abdominal Pain MDM MDM Narrative MDM Narrative:: This section includes all my notes and documentations, including HPI, PE, and ED course. Aníbal Lo MD HPI: 34 y/o male presents with severe left-sided chest/abdominal pain x 3 days. No fever or chills. No shortness of breath. No cough. No vomiting. Eating well. No history of abdominal surgery. No urinary symptoms. No other complaints. ROS: All negative except as documented in HPI. Physical Exam: General: Alert and oriented. In severe pain. Eyes: Conjunctivae and lids clear. ENT: No nasal congestion. Neck: Supple. Heart: RRR. Lungs: No respiratory distress. Good air movement. No rhonchi, wheezing, rales. Chest: Left-sided severe tenderness noted. Abdomen: Soft with severe LUQ tenderness. Normal bowel sounds. No distension. No rebound or guarding. Back: No CVA tenderness. Skin: Warm and dry. Neuro: Alert and oriented X 3. I ordered Toradol 30 mg IV, Morphine 6 mg IV, Zofran 4 mg IV, IVF, and diagnostic tests. At 6 AM on 12/13/2024, care of the patient was transferred to Dr. Colon. Aníbal Lo MD Patient data External records reviewed:: [facility] previous records Clinical information provided by:: patient Social determinants that could affect healthcare access:: none Patient has the following chronic illnesses:: Patient reports no chronic illnesses. How is presenting disease/condition affected by chronic disease/condition?: exacerbated by Evaluation data The following diagnostics were reviewed and interpreted by me:: lab results and radiology exam(s) Lab and/or radiology exams considered but not ordered:: None Interpretation Summary: Diagnostic tests are pending. Medications / Prescriptions Medications or Prescriptions considered but not ordered:: None Medication administrations:: Medication Administration History Sodium Chloride (Sodium Chloride Rt Edith 0.9% 3 Ml Nebu) 3 ml INH PRN PRN PRN Reason: SOLN Stop: 01/12/25 02:45 Discontinued Medications Ketorolac Tromethamine (Ketorolac Inj 30 Mg/Ml Vial) 30 mg IVP X1 ONE Stop: 12/13/24 02:47 Last Admin: 12/13/24 04:14 Dose: 30 mg Documented By: AUREA Morphine Sulfate (Morphine Sulf Inj 10 Mg/Ml Vial) 6 mg IVP X1 ONE Stop: 12/13/24 02:47 Last Admin: 12/13/24 04:17 Dose: 6 mg Documented By: AUREA Ondansetron HCl (Ondansetron Inj 2 Mg/Ml Inj 2 Ml) 4 mg IVP X1 ONE; Protocol Stop: 12/13/24 02:47 Last Admin: 12/13/24 04:13 Dose: 4 mg Documented By: AUREA Toradol 30 mg, Morphine 6 mg, Zofran 4 mg, IVF Consultations Consultation(s) initiated? (list below): No Diagnosis Differential diagnosis abdominal pain: acute appendicitis, calculus of kidney, constipation, diverticulitis, gastroenteritis, pancreatitis, small bowel obstruction and other (Biliary colic) Most likely diagnosis given after review of the tests above:: Diagnostic tests are pending. Admission Indicated Admission indicated?: not indicated Explain why admission is indicated or not indicated:: Diagnostic tests are pending. Admission Request Was there a request for admission?: No Disposition Plan Disposition Plan: other (specify) (At 6 AM on 12/13/2024, care of the patient was transferred to Dr. Colon.) Discharge Plan Prescriptions/Referrals Prescriptions/Med Rec: No Action INHALER Qty: 0 Cyclobenzaprine * (FLEXERIL *) 10 MG tablet 10 mg PO TID Qty: 30 0RF Hydrocodone/Acetaminophen * (NORCO 5/325 *) 1 TAB tablet 1 tab PO Q4H PRN (Reason: pain) Qty: 20 0RF Rx Instructions: 1 - 2 tabs every 6 hours as needed for pain Hydrocodone/Acetaminophen * (NORCO 5/325 *) 1 TAB tablet 1 tab PO Q6H PRN (Reason: PAIN) Qty: 12 0RF tramadol-acetaminophen [Ultracet] 37.5-325 mg tablet 1 tab PO TID PRN (Reason: pain) Qty: 15 0RF ibuprofen 800 mg tablet 800 mg PO TID PRN (Reason: pain) Qty: 30 0RF hydrocodone-acetaminophen 5-325 mg tablet 1 tab PO BID MDD 10 PRN (Reason: pain) Qty: 10 0RF ibuprofen 800 mg tablet 800 mg PO TID PRN (Reason: pain) Qty: 30 0RF cephalexin [Keflex] 500 mg capsule 500 mg PO QID Qty: 28 0RF doxycycline hyclate 100 mg capsule 100 mg PO BID Qty: 14 0RF cyclobenzaprine 15 mg capsule,extended release 24hr 15 mg PO QDAY PRN (Reason: muscle spasm) Qty: 3 0RF azithromycin 250 mg tablet See Rx Instructions .ROUTE .COMPLEX Qty: 6 0RF Rx Instructions: take 500 mg today (day 1), then 250 mg for 4 days (days 2-5) albuterol sulfate 90 mcg/actuation HFA aerosol inhaler 2 puff inhalation QID PRN (Reason: shortness of breath or wheezing) Qty: 8.5 0RF naproxen [Naprosyn] 500 mg tablet 500 mg PO BID PRN (Reason: pain) Qty: 30 0RF methylprednisolone [Medrol (Ambrocio)] 4 mg tablets,dose pack 4 mg PO QAM Qty: 21 0RF acetaminophen [Tylenol Extra Strength] 500 mg tablet 1,000 mg PO Q6H PRN (Reason: pain) Qty: 30 0RF meloxicam 7.5 mg tablet 7.5 mg PO QDAY Qty: 20 0RF colchicine 0.6 mg capsule 0.6 mg PO BID PRN (Reason: gout pin) Qty: 10 0RF hydrocodone-acetaminophen 5-325 mg tablet 1 tab PO Q6H MDD max4 tab per day PRN (Reason: pain) Qty: 15 0RF Problem List Clinical Impression: Left flank pain Patient/Caregiver Discharge Instructions Print Language: Slovenian
[2024-12-13 03:49] LABS: Collection Type, Urine Clean Catch
[2024-12-13 03:51] LABS: Basophils # (Auto) 0.1 Thou/mm3 (0.0-0.2); Basophils % (Auto) 1 % (0-2.5); Eosinophils # (Auto) 0.5 Thou/mm3 (0.0-0.5); Eosinophils % (Auto) 6 % (0-10); Hematocrit 41.6 % (41.0-53.0); Hemoglobin 12.7 g/dL (13.5-16.0); Immature Granulocytes Auto 0.01 Thou/mm3 (0.00-0.00); Lymphocytes # (Auto) 2.4 Thou/mm3 (1.0-4.8); Lymphocytes % (Auto) 27 % (10-50); Mean Corpuscular HGB Conc 30.5 g/dl (31.0-37.0); Mean Corpuscular Hemoglobin 21.1 pg (25.0-35.0); Mean Corpuscular Volume 69 fL (80-100); Monocytes # (Auto) 0.6 Thou/mm3 (0.0-0.8); Monocytes % (Auto) 7 % (0-12); Neutrophils # (Auto) 5.2 Thou/mm3 (1.8-7.7); Neutrophils % (Auto) 59 % (37-80); Nucleated Red Blood Cell # 0.00 Thou/mm3 (0.00-0.00); Nucleated Red Blood Cell % 0 /100 WBC (0); Platelet Count 271 Thou/mm3 (140-440); RDW Standard Deviation 40.9 fL (35.1-43.9); Red Blood Count 6.02 Miln/mm3 (4.50-5.90); White Blood Count 8.9 Thou/mm3 (3.8-10.6)
[2024-12-13 04:06] LABS: B-Type Natriuretic Peptide < 20 pg/mL (0-100)
[2024-12-13 04:08] LABS: Bilirubin,Urine Negative (Negative); Blood,Urine Negative (Negative); Clarity,Urine Clear (Clear/Hazy); Color,Urine Lt-Yellow (Lt Yel-Yel); Culture Indicated,Urine Not Indicated; Glucose, Urine Negative (Negative); Ketones,Urine Negative (Negative); Leukocyte Esterase,Urine Negative (Negative); Nitrite,Urine Negative (Negative); PH,Urine 6.0 (5.0-7.0); Protein,Urine Negative (Neg - Trace); RBC,Urine 3 /hpf (0-3); Specific Gravity,Urine 1.017 (1.001-1.035); Squamous Epithelial Cell,Urine 1 /hpf (0-5); Urobilinogen,Urine Negative mg/dL (0.0-1.0); WBC,Urine 1 /hpf (0-5)
[2024-12-13 04:10] LABS: D-Dimer < 250 ng/mL (<600)
[2024-12-13] MEDS: ONDANSETRON INJ 2 MG/ML INJ 2 ML 4 MG IVP (04:13)
[2024-12-13] MEDS: KETOROLAC INJ 30 MG/ML VIAL IVP (04:14)
[2024-12-13] MEDS: MORPHINE SULF INJ 10 MG/ML VIAL 6 MG IVP (04:17)
[2024-12-13 04:23] LABS: Alanine Aminotransferase 17 U/L (10-49); Albumin, Serum 4.3 gm/dL (3.5-5.0); Albumin/Globulin Ratio 1.8 (1.2-2.2); Alcohol, Blood Medical < 3.0 mg/dL (0-10.0); Alkaline Phosphatase 82 U/L (46-116); Amylase 55 U/L (30-118); Anion Gap 8 (7-16); Aspartate Amino Transferase 19 U/L (0-34); BUN/Creatinine Ratio 8 Ratio (12-20); Bilirubin,Direct 0.2 mg/dL (0.0-0.3); Bilirubin,Total 0.6 mg/dL (0.3-1.2); Blood Urea Nitrogen 8 mg/dL (9-23); Calcium 9.7 mg/dL (8.3-10.6); Calcium (Corrected) 9.7 mg/dL (8.5-10.1); Carbon Dioxide 28.5 mMol/L (20.0-31.0); Chloride 106 mMol/L (98-107); Creatinine (Component) 1.0 mg/dL (0.6-1.3); Estimated Creatinine Clearance 104.8 mL/min (>60); Globulin 2.4 gm/dL (2.3-3.5); Glucose 95 mg/dL (74-106); Lipase 59 U/L (12-53); Magnesium 1.9 mg/dL (1.6-2.6); Osmolality,Calculated 281 (275-295); Potassium 4.2 mMol/L (3.4-5.1); Sodium 142 mMol/L (136-145); Total Protein 6.7 gm/dL (5.7-8.2); Troponin I < 0.020 ng/mL (0.0-0.045); eGFR > 60 See Note
[2024-12-13 04:24] LABS: Amphetamine/Methamp Scrn,U Negative (Negative); Barbiturate Screen,Urine Negative (Negative); Benzodiazepines Screen,Urine Negative (Negative); Benzoylecgonine Screen, Ur Positive (Negative); Fentanyl Screen,Urine Negative (Negative); Opiate Screen,Urine Negative (Negative); THC Screen,Urine Positive (Negative)
--- NOTE | 2024-12-13 05:38 | PRELIM_ITS ---
CT angiogram of the chest with intravenous contrast (axial sections with sagittal and coronal reformats). December 13, 2024 0439 hours Clinical History: Severe left chest pain Comparison: None Findings: Heart is normal in size. There is no pericardial or pleural effusion. There is possible left ventricular hypertrophy. There is no thoracic aortic aneurysm. There is no filling defect within the pulmonary arterial circulation. Thyroid is not enlarged. There is no thoracic lymphadenopathy. There is minimal subsegmental atelectasis within the lung bases otherwise lungs are clear. There is no pneumothorax. There is no acute osseous abnormality. Please refer to concurrent CT abdomen/pelvis for description of other findings. Impression: No thoracic aortic aneurysm or dissection. No pulmonary arterial embolism. No pericardial or pleural effusion. No pneumothorax. Possible left ventricular hypertrophy. Report Electronically Signed By: Cliff Shore 12/13/2024 5:37:32 AM [EST]
--- NOTE | 2024-12-13 05:43 | PRELIM_ITS ---
CT scan of the abdomen and pelvis with intravenous contrast (axial sections with sagittal and coronal reformats). December 13, 2024 0439 hours Clinical History: Left flank pain Comparison: None Findings: There is mild fatty infiltration of the liver. Gallbladder appears partially contracted limiting evaluation. The spleen, pancreas and adrenals are unremarkable. Bilateral renal cysts noted. There is no renal or ureteral calculus. There is no hydroureteronephrosis. There is circumferential urinary bladder wall thickening which may be due to suboptimal distention or cystitis. There are pelvic phleboliths. There is underdistention of the stomach which limits evaluation. There is no bowel obstruction. Appendix is normal. There is no free intraperitoneal air or fluid. There is no abdominal or pelvic lymphadenopathy. Small fat-containing left inguinal hernia suggested. There is no acute osseous abnormality. There are Schmorl's nodes in the lumbar spine. Impression: 1. Mild fatty infiltration of the liver. 2. Bilateral renal cysts. 3. Possible cystitis. 4. No bowel obstruction. Normal appendix. 5. Small fat-containing left inguinal hernia. Report Electronically Signed By: Cliff Shore 12/13/2024 5:43:17 AM [EST]
--- NOTE | 2024-12-13 05:50 | EDNOTE_ITS ---
Emergency Room Addendum Addendum Narrative: Patient was initially transferred to Dr. Colon, next shift's physician. But with return of all diagnostic tests, I discharged the patient. HPI: 34 y/o male presents with severe left-sided chest/abdominal pain x 3 days. No fever or chills. No shortness of breath. No cough. No vomiting. Eating well. No history of abdominal surgery. No urinary symptoms. No other complaints. ROS: All negative except as documented in HPI. Physical Exam: General: Alert and oriented. In severe pain. Eyes: Conjunctivae and lids clear. ENT: No nasal congestion. Neck: Supple. Heart: RRR. Lungs: No respiratory distress. Good air movement. No rhonchi, wheezing, rales. Chest: Left-sided severe tenderness noted. Abdomen: Soft with severe LUQ tenderness. Normal bowel sounds. No distension. No rebound or guarding. Back: No CVA tenderness. Skin: Warm and dry. Neuro: Alert and oriented X 3. I reviewed all diagnostic test results: My interpretation of the chest x-ray is: NAD. My review of the chest/abdominal CT reports is NAD. Blood tests and urine tests?remarkable for positive UDS for cocaine and marijuana. At this point, diagnoses include: Musculoskeletal pain Cocaine use Treatment here included: Rradol 30 mg IV, Morphine 6 mg IV, Zofran 4 mg IV, IVF Significant improvement noted. Recommended outpatient care. Based on my best medical judgment, made decision no further evaluation or treatment indicated at this time.? Patient understands and agrees to the discharge instructions customized and printed, see below. Discharge Instructions from Dr. Lo printed for you: 1. After extensive evaluation, there is no life-threatening condition or very serious condition needing immediate intervention. Such as heart attack or blood clots in your lungs or appendicitis. 2. Your symptoms are due to cocaine intoxication. Stop all drugs. 3. Ice or heat if helpful. Tylenol/ibuprofen as needed. 4. See a private doctor on 12/16/2024 for recheck and further care. Ask to review all test results and official radiology reports, to make sure you receive all necessary follow-ups and monitoring. To make sure there is no serious intra-abdominal condition, ask for help with more investigation not available here in the ER. Such as EGD or scoping the stomach, colonoscopy or scoping the colon, and referral to see sr solutions consultant. To make sure there is no serious underlying heart condition, ask to help you get more tests for your heart that cannot be done here in the ER. Such as Holter Monitor (cardiac monitoring at home from a day to even a month), heart stress test (on treadmill or with medication), echocardiogram (imaging of your heart structures), heart catherization (checking for blockages in your heart arteries), and a referral to see a Mimeograph Operator. 5. Seek immediate medical care with worsening or with any concerns. Aníbal Lo MD
[2024-12-13 05:54] VITALS: BP 142/86; PULSE 76; RESP 18; TEMP 36.7; O2SAT 96
== END 2024-12-13 05:55 | disposition home or self-care (01) ==
LOC: SERX 06:33
PROVIDERS: Emergency Provider Emergency Medicine
DX: R10.12 Left upper quadrant pain (principal); M79.18 Myalgia, other site; F14.90 Cocaine use, unspecified, uncomplicated; R07.89 Other chest pain; R06.02 Shortness of breath; Z87.442 Personal history of urinary calculi
CPT/HCPCS: 36415; 71045; 71275; 74177; 80053; 80307; 80320; 81001; 82150; 82248; 83690; 83735; 83880; 84484; 85025; 85379; 96374; 96375; 99283; A4649; J1885; J2270; J2405; Q9967; G0480